=== PATIENT | female | born 1955 | race Caucasian/White ===

== ENCOUNTER → 2023-02-04 13:26 | Outpatient (CLI) | payer MEDICARE, OTHER, SELFPAY ==
--- NOTE | 2023-02-04 13:29 | DI.ECHO.S_ITS ---
[facility] +---------+ : : [address] : : : : [id number] : : : : Phone: [phone]---------+ Echocardiogram Report + + :Name: ALEJANDRA CHAUHAN Study Date: 02/04/2023 Height: 68 in : :[facility] ReadingLocation: Weight: 160 lb : : Gender: Female BSA: 1.9 m2 : :: 1955 Age: 67 yrs BP: 133/84 mmHg: :Reason For Study: MURMUR, OTHER FORMS OF DYSPNEA HR: 60 : :Ordering Physician: FAITH, : :OBI Performed By: MIREYA BUTLER : :Referring: OBI CUEVAS : + + Interpretation Summary 1) Normal left ventricular thickness, size, wall motion, and systolic function (EF 60-65%). 2) Normal right ventricular size and function. 3) There is mild aortic regurgitation. 4) No prior Echo available for comparison. Procedure: A two-dimensional transthoracic echocardiogram with color flow and Doppler was performed. The study quality was technically adequate. There is no prior echocardiogram noted for this patient. The patient was in normal sinus rhythm during the exam. Left Ventricle: The left ventricle is normal in size and wall thickness. Left ventricular systolic function is normal. The ejection fraction is estimated to be 60-65%. Left ventricular wall motion is normal. Diastolic parameters suggest probable normal left ventricular diastolic function and normal filling pressures. Right Ventricle: The right ventricle is normal size. The right ventricular systolic function is normal. Atria: Both atria are normal in size. There is no Doppler evidence for an interatrial shunt. Mitral Valve: The mitral valve is normal in structure and function. There is trace mitral regurgitation. Aortic Valve: The aortic valve is trileaflet. The aortic valve opens well. There is no aortic valve stenosis. There is mild aortic regurgitation. Tricuspid Valve: The tricuspid valve is normal. There is mild tricuspid regurgitation. The right ventricular systolic pressure is estimated to be at least 29 mmHg based on an estimated right atrial pressure of 3 mm Hg. Pulmonic Valve: The pulmonic valve leaflets are thin and pliable; valve motion is normal. There is trace pulmonic regurgitation. Great Vessels: The aortic root is normal size. The ascending aorta is normal in size. The IVC is dilated (diameter is greater than 2.1 cm) yet it collapses greater than 50% with a sniff. This suggests a right atrial pressure of 8 mm Hg. Pericardium/ Pleura There is no pericardial effusion. There is no pleural effusion. MMode/2D Measurements & Calculations LVIDd: 4.6 cm LVOT diam: 2.1 cm LVIDs: 2.5 cm Ao root diam: 3.6 cm FS: 45.7 % asc Aorta Diam: 3.3 cm IVSd: 0.80 cm LVPWd: 0.80 cm LV oseguera. diameter/BSA (cm/m^2): 2.5 LV sys. diameter/BSA (cm/m^2): 1.3 LA A2 area: 19.7 cm2 RA long axis: 3.9 cm LA A4 area: 14.4 cm2 LA length (vol): 5.7 cm LA vol: 42.6 ml LA vol index: 22.9 ml/m2 LVLs ap4: 6.1 cm LVLd ap2: 8.8 cm LVLs ap2: 6.3 cm TAPSE_phl: 3.0 cm Doppler Measurements & Calculations Ao V2 max: 127.0 cm/sec LVOT Max Ravi: 115.0 cm/sec Ao V2 mean: 82.2 cm/sec LV V1 max P.3 mmHg Ao max P.5 mmHg LV V1 VTI: 25.1 cm Ao mean P.0 mmHg JADE(I,D): 3.4 cm2 Ao V2 VTI: 25.3 cm JADE(V,D): 3.1 cm2 sev ratio: 0.99 JADE indexed to BSA (cm^2/m^2): 1.8 MV E max ravi: 76.3 cm/sec TR max ravi: 257.0 cm/sec MV A max ravi: 86.5 cm/sec TR max P.4 mmHg MV E/A: 0.88 PA V2 max: 103.0 cm/sec Med Peak E' Ravi: 8.5 cm/sec PA V2 mean: 76.1 cm/sec E/E' med: 9.0 PA mean P.0 mmHg Lat Peak E' Ravi: 13.8 cm/sec PA pr(Accel): 33.1 mmHg E/E' lat: 5.5 E/e' average: 7.2 MV dec time: 0.23 sec SV(LVOT): 86.9 ml AV VR_phl: 0.91 JADE(VTI)/BSA_phl: 1.8 MV P1/2t-pr_phl: 66.0 msec Reading Physician:03:37 PM
--- NOTE | 2023-02-06 11:41 | DI.NM.S_ITS ---
DATE OF SERVICE:02/04/2023 PROCEDURE: Exercise treadmill stress test without imaging. ORDERING PROVIDER: SUPA Lord. INDICATIONS: The patient is a 67-year-old hypertensive female with exertional dyspnea. FINDINGS: 1. The patient was able to exercise for 10 minutes and 16 seconds on a standard Jae protocol suggesting exceptional exercise capacity with an DANNY of -62%, achieving 12.8 METS. 2. She had a normal heart rate and blood pressure response to exercise, achieving a maximum heart rate of 141 BPM (91% of her predicted maximum). 3. She had no chest pain or other anginal symptoms. 4. Her resting ECG showed sinus rhythm with mild resting ST and T-wave abnormalities that became slightly accentuated with stress but without significant deviation and resolved early in recovery, and thus is nonspecific for ischemia. There were occasional isolated PVCs at high workload and in recovery, but no complex ventricular ectopy. IMPRESSION: 1. Probable normal exercise treadmill stress test for ischemia. There was slight accentuation of baseline ST-segment abnormalities but this resolved early in recovery. This is a low risk study. 2. Exceptional exercise capacity without angina. 3. She developed occasional isolated PVCs at high workload and in recovery but had no complex ventricular ectopy. Mitzy Rico - CARIE/charity/cornelio doc#: [id number]/job#: [id number] dd: 02/04/2023 16:56:00 dt: 02/04/2023 22:10:00 DICTATING /COPIES TO: Mau Arzate MD; Lizet Shell NP COPIES MNE: RIGOBERTO;
== END ==
PROVIDERS: PCP Registered Nurse; Referring Provider Registered Nurse; Visit Provider Registered Nurse
DX: R06.09 Other forms of dyspnea (principal); R01.1 Cardiac murmur, unspecified; I08.2 Rheumatic disorders of both aortic and tricuspid valves
CPT/HCPCS: 93017; 93306

== ENCOUNTER → 2023-08-29 | Outpatient (CLI) | payer MEDICARE, OTHER, SELFPAY ==
--- NOTE | 2023-08-29 | DI.MG.S_ITS ---
BILATERAL DIGITAL SCREENING MAMMOGRAM 3D/2D WITH CAD: 08/29/2023 CLINICAL: Routine screening. No prior exams were available for comparison. There are scattered areas of fibroglandular density in both breasts (category b / 25%-50% glandular tissue). Current study was also evaluated with a Computer Aided Detection (CAD) system. No significant masses, calcifications, or other findings are seen in either breast. IMPRESSION: NEGATIVE There is no mammographic evidence of malignancy. A 1 year screening mammogram is recommended. Based on the Tyrer Cuzick model (a risk assessment model) the patient's lifetime risk is 6.3% and her 10 year risk is 3.0%. According to the ACR, ACS, and NCCN guidelines, an annual breast MRI exam along with mammogram is recommended if the patient's lifetime risk is 20% or greater. This exam was interpreted at Station ID: [id number]. NOTE: For mammograms, a report in lay terms will be sent to the patient. Approximately 15% of breast malignancies will not be visualized mammographically. In the management of a palpable breast mass, a negative mammogram must not discourage biopsy of a clinically suspicious lesion. Electronically Signed By: Ashish azar/alta:08/29/2023 12:03:35 letter sent: Normal Exam ACR BI-RADS Category 1: Negative [id number]
--- NOTE | 2023-08-29 | DI.RAD.S_ITS ---
Bone Density Report Name: ALEJANDRA CHAUHAN Age: 67 Sex: Female Ethnicity: White Date of : 1955 Indication: postmenopausal; screening for osteoporosis; prior fracture; Referring Provider: OBI CUEVAS Study: Bone densitometry was performed. Exam Date: August 29, 2023 Accession number: [id number] Bone Density: Region BMD T-score Z-score Classification AP Spine(L1, L4) 0.797 -2.2 -0.4 Osteopenia Femoral Neck (Left) 0.652 -1.8 -0.2 Osteopenia Total Hip (Left) 0.753 -1.5 -0.3 Osteopenia Femoral Neck (Right) 0.684 -1.5 0.1 Osteopenia Total Hip (Right) 0.783 -1.3 0.0 Osteopenia Total Hip Mean 0.768 -1.4 -0.2 Osteopenia World Health Organization criteria for BMD impression classify patients as: Normal (T-score at or above -1.0), Osteopenia (T-score between -1.0 and -2.5), or Osteoporosis (T-score at or below -2.5). 10-year Fracture Risk: FRAX not reported because: Prior hip or vertebral fracture Impression: The patient has low bone mass, based on the Total Spine T-score. The patient has risk factors, including: previous fracture. Discussion: INCREASED RISK OF FRACTURE DUE TO HISTORY OF FRACTURE. The patient's previous fracture puts the patient at high risk of a future fracture. In untreated patients, the risk of osteoporotic fracture increases approximately two-fold for each 1.0 SD decrease in T-score. Low bone density is not the only risk factor for fracture; also consider factors such as patient's age, frailty or poor health, risk of falling, risk of injury, previous osteoporotic fracture, family history of osteoporosis, cigarette smoking, low body weight, etc. Not everyone with a low trauma fracture has osteoporosis; osteomalacia and other metabolic bone disorders should also be considered. Patients who have osteoporosis should be evaluated for specific diseases and conditions (secondary causes) that may cause or contribute to bone loss and fracture risk. National Osteoporosis Foundation (NOF) recommends pharmacologic intervention for patients with a prior hip or vertebral fracture regardless of BMD T-score. The patient should follow a healthful lifestyle (good nutrition with adequate calcium and vitamin D, and appropriate weight-bearing exercise). Follow-Up: Consider a repeat BMD and Vertebral Fracture Assessment (VFA) exam in 2 years or sooner if medically necessary, to reassess this patient's status. Reported by: VENKATA MARIE M.D. on 08/29/2023 11:25:00 AM.
== END ==
LOC: MAMMO 11:00
PROVIDERS: PCP Registered Nurse; Referring Provider Registered Nurse; Visit Provider Registered Nurse
DX: Z12.31 Encounter for screening mammogram for malignant neoplasm of breast (principal); Z78.0 Asymptomatic menopausal state; M85.88 Other specified disorders of bone density and structure, other site; Z13.820 Encounter for screening for osteoporosis; Z87.311 Personal history of (healed) other pathological fracture
CPT/HCPCS: 77063; 77067; 77080

== ENCOUNTER → 2024-03-03 11:58 | Outpatient (CLI) | payer MEDICARE, OTHER, SELFPAY ==
--- NOTE | 2024-03-03 12:03 | DI.RAD.S_ITS ---
PROCEDURE: XR HIP W PEL IF DONE RT 2V INDICATIONS: FALL, BACK PAIN TECHNIQUE: AP pelvis with lateral view(s) of the right hip(s). COMPARISON: [facility], CR, XR LUMBAR SPINE 2-3V, 03/03/2024, 12:13. FINDINGS: Bones: No fractures or dislocations. Pelvic ring appears intact. No suspicious bony lesions. Mild degenerative joint disease in hips and sacroiliac joints bilaterally. 2 metallic densities projecting to the right mid abdomen and upper pelvis. Soft tissues: The visualized bowel gas pattern is normal. No suspicious soft tissue calcifications. IMPRESSION: 1. No acute bony abnormality. 2. Mild degenerative joint disease. Dictated by: Dionte Roth M.D. on 03/04/2024 at 8:15 Approved by: Dionte Roth M.D. on 03/04/2024 at 8:16
--- NOTE | 2024-03-03 12:04 | DI.RAD.S_ITS ---
PROCEDURE: XR LUMBAR SPINE 2-3V INDICATIONS: FALL, BACK PAIN TECHNIQUE: 3 views of the lumbar spine were acquired. COMPARISON: X-ray thoracic spine, 03/03/2024. FINDINGS: Bones: 5 [id number] vertebrae are present. There is mild levocurvature. Trace retrolisthesis of L3 on L4. Severe compression fracture of T12 and moderate vertebral body compression fracture at L3 of indeterminate chronicity. No suspicious bony lesions. Multilevel degenerative disease, moderate at L3-L4, mild at other levels. Moderate facet arthropathy at L2-L3, L3-L4, L4-L5 and L5-S1. Soft tissues: Overlying bowel gas pattern is normal. No suspicious soft tissue calcifications. IMPRESSION: 1. Severe compression fracture of T12 and compression fracture of L3 of indeterminate chronicity. Comparison to prior examinations, if available, would be helpful. If clinically indicated, consider MRI or CT. 2. Moderate spondylitic changes. 3. Mild levocurvature. Dictated by: Dionte Roth M.D. on 03/04/2024 at 8:16 Approved by: Dionte Roth M.D. on 03/04/2024 at 8:18
--- NOTE | 2024-03-03 12:04 | DI.RAD.S_ITS ---
PROCEDURE: XR THORACIC SPINE 3V INDICATIONS: FALL, BACK PAIN TECHNIQUE: 3 views of the thoracic spine were acquired. COMPARISON: [facility], CR, XR LUMBAR SPINE 2-3V, 03/03/2024, 12:13. FINDINGS: Bones: Multiple compression fractures, severe at T12, moderate at T 6 and mild at T 5. Osteopenia. No suspicious bony lesions. Mild degenerative disc disease throughout the thoracic spine. 12 pairs of ribs are noted, and appear intact where visualized. Soft tissues: No paravertebral stripe thickening. IMPRESSION: 1. Severe compression fracture at T12, moderate compression fracture at T6 and mild compression fracture at T 5. Chronicity uncertain. There may be acute fracture superimposed on chronic fracture. If clinically indicated, consider MRI with CT for further evaluation. Comparison to prior examinations, if available, would be helpful. 2. Mild spondylitis. 3. Osteopenia. Dictated by: Dionte Roth M.D. on 03/04/2024 at 8:20 Approved by: Dionte Roth M.D. on 03/04/2024 at 8:23
== END ==
PROVIDERS: PCP Registered Nurse; Referring Provider Registered Nurse; Visit Provider Registered Nurse
DX: S22.059A Unspecified fracture of T5-T6 vertebra, initial encounter for closed fracture (principal); S22.089A Unspecified fracture of T11-T12 vertebra, initial encounter for closed fracture; S32.039A Unspecified fracture of third lumbar vertebra, initial encounter for closed fracture; M46.94 Unspecified inflammatory spondylopathy, thoracic region; M85.88 Other specified disorders of bone density and structure, other site; M16.0 Bilateral primary osteoarthritis of hip; M70.61 Trochanteric bursitis, right hip; M25.551 Pain in right hip; M51.36 Other intervertebral disc degeneration, lumbar region; M47.816 Spondylosis without myelopathy or radiculopathy, lumbar region; M47.817 Spondylosis without myelopathy or radiculopathy, lumbosacral region; M54.50 Low back pain, unspecified; W18.30XA Fall on same level, unspecified, initial encounter
CPT/HCPCS: 72072; 72100; 73502

== ENCOUNTER → 2024-09-04 14:49 | Outpatient (CLI) | payer MEDICARE, OTHER, SELFPAY ==
--- NOTE | 2024-09-04 | DI.MG.S_ITS ---
BILATERAL DIGITAL SCREENING MAMMOGRAM 3D/2D WITH CAD: 09/04/2024 Comparison is made to exam dated: 08/29/2023 mammogram - [facility]. The breasts are almost entirely fatty (category a/<25% glandular tissue). Current study was also evaluated with a Computer Aided Detection (CAD) system. No significant masses, calcifications, or other findings are seen in either breast. There has been no significant interval change. IMPRESSION: NEGATIVE There is no mammographic evidence of malignancy. A 1 year screening mammogram is recommended. Based on the Tyrer Cuzick model (a risk assessment model) the patient's lifetime risk is 4.0% and her 10 year risk is 2.0%. According to the ACR, ACS, and NCCN guidelines, an annual breast MRI exam along with mammogram is recommended if the patient's lifetime risk is 20% or greater. This exam was interpreted at Station ID: [id number]. NOTE: For mammograms, a report in lay terms will be sent to the patient. Approximately 15% of breast malignancies will not be visualized mammographically. In the management of a palpable breast mass, a negative mammogram must not discourage biopsy of a clinically suspicious lesion. Electronically Signed By: Duc anderson/alta:09/04/2024 16:30:04 letter sent: Normal Exam ACR BI-RADS Category 1: Negative
== END ==
PROVIDERS: PCP Registered Nurse; Referring Provider Registered Nurse; Visit Provider Registered Nurse
DX: Z12.31 Encounter for screening mammogram for malignant neoplasm of breast (principal); R92.313 Mammographic fatty tissue density, bilateral breasts
CPT/HCPCS: 77063; 77067

== ENCOUNTER 2024-09-25 16:34 | Emergency (ER) | payer MEDICARE, OTHER, SELFPAY ==
[2024-09-25 16:40] VITALS: BP 138/86; PULSE 72; RESP 16; TEMP 36.1; O2SAT 98; BMI 28.7
[2024-09-25 17:25] LABS: Add Manual Diff / Slide Review NO; Basophils Absolute Auto 100 /uL (0-100); Basophils Percent Auto 1.4 % (0-2); Eosinophils Absolute Auto 200 /uL (0-450); Hematocrit 32.3 % (36-46); Hemoglobin 10.6 g/dL (12.0-16.0); Lymphocytes Absolute Auto 1400 /uL (1100-4500); Lymphocytes Percent Auto 34.8 % (25-40); Mean Corpuscular HGB Conc 32.8 % (30-36); Mean Corpuscular Hemoglobin 25.9 PG (26-34); Mean Corpuscular Volume 79.1 fL (80-100); Monocytes Absolute Auto 400 /uL (0-900); Monocytes Percent Auto 8.7 % (3-14); Neutrophils Absolute Auto 2100 /uL (1500-7000); Neutrophils Percent Auto 51.1 % (50-75); Platelet Count 379 X10^3/uL (150-400); Red Blood Cell Count 4.08 X10^6/uL (4.0-5.2); Red Cell Distribution Width 16.4 % (11.6-14.8); White Blood Cell Count 4.1 X10^3/uL (4.5-11.0)
[2024-09-25 17:29] LABS: Alanine Aminotransferase 15 IU/L (<35); Albumin 4.6 g/dL (3.5-5.0); Alkaline Phosphatase 85 U/L (38-126); Aspartate Aminotransferase 25 IU/L (14-36); BUN Creatinine Ratio 15.8 (6-22); Bilirubin Total 0.7 mg/dL (0.2-1.3); Blood Urea Nitrogen 12 mg/dL (7-17); Calcium 9.3 mg/dL (8.4-10.2); Carbon Dioxide 24 mmol/L (22-32); Chloride 106 mmol/L (98-107); Estimated Glomerular Filt Rate > 60 mL/min (>60); Globulin 3.1 g/dL (1.7-4.1); Glucose 88 mg/dL (80-110); HEMOLYSIS < 15 (0-50); Potassium 3.8 mmol/L (3.4-5.1); Sodium 136 mmol/L (137-145); Total Protein 7.7 g/dL (6.3-8.2)
[2024-09-25 17:30] LABS: Albumin Globulin Ratio 1.5 (1.0-2.8); Lipase 78 U/L (23-300)
[2024-09-25 18:07] LABS: Bacteria Urine None Seen; Culture Indicated Urine Cult Not Indicated; RBC Urine None Seen (0-5/HPF); Squamous Epithelial Cell Urine None Seen (0-5/HPF); Urine Volume 10mL (spun); WBC Urine 0-1/HPF (0-5/HPF)
--- NOTE | 2024-09-25 18:13 | DI.CT.S_ITS ---
PROCEDURE: CT ABDOMEN PELVIS W CON INDICATIONS: Abdominal distention and pain TECHNIQUE: After the administration of intravenous contrast, axial sections acquired from the lung bases to the pubic symphysis. Coronal and sagittal reformats were performed. For radiation dose reduction, the following was used: automated exposure control, adjustment of mA and/or kV according to patient size. COMPARISON: [facility], CR, XR LUMBAR SPINE 2-3V, 03/03/2024, 12:13. FINDINGS: Image quality: Diagnostic. Lower Chest: Large hiatal hernia. Abnormal orientation of the stomach within the posterior mediastinum. ABDOMEN: Liver: No solid mass. Gallbladder: Gallbladder sludge versus small stones. No wall thickening or pericholecystic edema to suggest acute cholecystitis. Biliary ducts: No biliary dilation. Pancreas: No ductal dilation. Pancreatic divisum. Spleen: Size is within normal limits. Adrenal Glands: No adrenal nodules. Kidneys and Ureters: No hydronephrosis. No solid mass. No complex renal cystic lesion which requires follow up. Bilateral renal sinus cysts. Stomach and Bowel: Normal colonic caliber, without significant wall thickening. Normal appendix. Colonic diverticulosis without evidence of diverticulitis. Peritoneum: No abnormal intraperitoneal fluid. No free air. Ventral Wall: No significant ventral hernia. Abdominal Nodes: No retroperitoneal or mesenteric adenopathy by size criteria. Vessels: Aorta and inferior vena cava are normal in size. PELVIS: Pelvic Organs: Unremarkable. Bladder: No bladder wall thickening, accounting for underdistention. Pelvic Nodes: No enlarged lymph nodes. Miscellaneous: No inguinal hernias are seen. Bones: Osteoporosis. Compression deformities of various severity at every visualized level, progressed from 05/01/2024. 3 mm retropulsion at T12. IMPRESSION: There is a large hiatal hernia, containing near the entire stomach. There is abnormal rotation of the stomach within the hernia, which may indicate volvulus in the correct clinical setting. Progressed compression deformities of the thoracolumbar spine at every level. Other chronic findings as above. Dictated by: Franklin Carlson M.D. on 09/25/2024 at 18:53 Approved by: Franklin Carlson M.D. on 09/25/2024 at 18:59
--- NOTE | 2024-09-25 19:21 | EKG_ITS ---
[facility] [address] [place] [address] Test Date: 2024-09-25 Pat Name: Mitzy Rico Department: [facility] Room: Gender: Female [employer]: SUDARSHAN : 1955 Requested By: Order Number: [id number] Reading MD: Dann Rodrigez Measurements Intervals [place] Rate: 65 P: 34 AR: 150 QRS: 13 QRSD: 68 T: 19 QT: 412 QTc: 428 Interpretive Statements Normal sinus rhythm Nonspecific ST and T wave abnormality Electronically Signed On 10-01-2024 9:06:27 PST by Dann Rodrigez
[2024-09-25 19:39] VITALS: BP 145/83; PULSE 60; O2SAT 98
[2024-09-25 19:40] VITALS: BP 145/83; PULSE 63; RESP 16; O2SAT 97
--- NOTE | 2024-09-25 19:58 | ED_ITS ---
HPI - General Adult General Chief complaint: Abdominal Pain Stated complaint: abd pain Time Seen by Provider: 09/25/24 18:13 Source: patient Mode of arrival: Ambulatory History of Present Illness HPI narrative: Patient is a 69-year-old female who is here for evaluation of early satiety, abdominal discomfort, nausea. No changes in bowel habits. No urinary symptoms. She stated that she has had a GI bleed in the past requiring colonoscopy and endoscopy. She stated that this is most likely related to the use of anti- inflammatories. She was not in any of those symptoms recently. She was not on any anticoagulation. There is a referral for her to see Gastroenterology but that is not for another several weeks. She was getting iron infusions for anemia. She stated that she was getting her iron infusion today and she talked with the nurse about her symptoms who advised that she come to the emergency department for further evaluation. Her symptoms that she presents with today happen present for the past several weeks/months. He was nothing new recently. Related Data Home Medications Medication Instructions Recorded Confirmed calcium 500 mg tablet 1,500 mg DAILY 02/06/23 04/10/23 cholecalciferol (vitamin D3) 25 25 mcg PO DAILY 02/06/23 04/10/23 mcg (1,000 unit) chewable tablet (Vitamin D3) ferrous sulfate 325 mg (65 mg 325 mg PO DAILY 02/06/23 04/10/23 iron) tablet (iron) levothyroxine 75 mcg capsule 75 mcg PO DAILY 02/06/23 04/10/23 losartan 50 mg tablet 50 mg PO DAILY 02/06/23 04/10/23 polyethylene glycol 3350 17 gram 17 g PO DAILY 02/06/23 04/10/23 oral powder packet (Miralax) ascorbic acid (vitamin C) 500 mg 500 mg PO DAILY 04/10/23 04/10/23 tablet (Vitamin C) Allergies Allergy/AdvReac Type Severity Reaction Status Date / Time Sulfa (Sulfonamide Allergy Severe Anaphylaxis Verified 09/25/24 16:47 Antibiotics) Penicillins Allergy Unknown Verified 09/25/24 16:47 cefaclor [From Ceclor] AdvReac Intermediate Rash Verified 09/25/24 16:47 Review of Systems Review of Systems ROS Unobtainable: All systems reviewed & are unremarkable except as noted in HPI and below Patient History Social History (Reviewed 09/26/24 @ 01:14 by JANIE Bolton Smoking Status: Never smoker Smoking Status: Never smoker Alcohol type: wine Exam Initial Vital Signs Initial Vital Signs: Vital Signs Temperature 96.9 F L 09/25/24 16:40 Pulse Rate 72 09/25/24 16:40 Respiratory Rate 16 09/25/24 16:40 Blood Pressure 138/86 09/25/24 16:40 Pulse Oximetry 98 09/25/24 16:40 Oxygen Delivery Method Room Air 09/25/24 16:40 Const General: cooperative and comfortable HENMT Head: normal to inspection and normocephalic Resp Effort & Inspection: normal respiratory effort Auscultation: clear to auscultation bilaterally Cardio Rate: regular rate Rhythm: regular rhythm GI Inspection: normal to inspection and non-distended Palpation: soft Extrem General: normal to inspection Course Orders Ordered: ED Orders 09/25/24 16:47 EKG-12 Lead Stat 09/25/24 17:04 Complete Blood Count AUTO DIFF Stat Comprehensive Metabolic Panel Stat Lipase Stat 09/25/24 17:17 Urine Microscopic Stat 09/25/24 18:13 CT abdomen pelvis w con Stat Discontinued Medications Ondansetron HCl (Ondansetron 4 Mg/2 Ml Inj) 4 mg IV NOW PRN PRN Reason: Nausea And Vomiting Ondansetron HCl (Ondansetron 4 Mg Odt) 4 mg PO NOW PRN PRN Reason: Nausea And Vomiting Vital Signs Vital signs: Vital Signs - 8 hr 09/25/24 19:39 09/25/24 19:39 09/25/24 19:40 Pulse Rate 60 63 Respiratory Rate 16 Blood Pressure 145/83 H 145/83 H Pulse Oximetry 98 97 Oxygen Delivery Method Room Air 09/25/24 20:00 09/25/24 20:00 09/25/24 20:30 Pulse Rate 61 61 Respiratory Rate Blood Pressure 134/86 Pulse Oximetry 96 97 Oxygen Delivery Method Room Air 09/25/24 20:30 Pulse Rate Respiratory Rate Blood Pressure 131/80 Pulse Oximetry Oxygen Delivery Method Medical Decision Making Lab Data Lab results reviewed: Yes I reviewed the patient's lab results. 09/25/24 17:04 09/25/24 17:04 Labs: Lab Results 09/25/24 09/25/24 Range/Units 17:04 17:17 WBC 4.1 L (4.5-11.0) X10^3/uL RBC 4.08 (4.0-5.2) X10^6/uL Hgb 10.6 L (12.0-16.0) g/dL Hct 32.3 L (36-46) % MCV 79.1 L (80-100) fL MCH 25.9 L (26-34) PG MCHC 32.8 (30-36) % RDW 16.4 H (11.6-14.8) % Plt Count 379 (150-400) X10^3/uL Neut % (Auto) 51.1 (50-75) % Lymph % (Auto) 34.8 (25-40) % [place] % (Auto) 8.7 (3-14) % Eos % (Auto) 4.0 (2-4) % Baso % (Auto) 1.4 (0-2) % Neut # (Auto) 2100 (7605-5919) /uL Lymph # (Auto) 1400 (7870-5431) /uL [place] # (Auto) 400 (0-900) /uL Eos # (Auto) 200 (0-450) /uL Baso # (Auto) 100 (0-100) /uL Sodium 136 L (137-145) mmol/L Potassium 3.8 (3.4-5.1) mmol/L Chloride 106 (98-107) mmol/L Carbon Dioxide 24 (22-32) mmol/L BUN 12 (7-17) mg/dL Creatinine 0.76 (0.52-1.04) mg/dL Estimated GFR > 60 (>60) mL/min BUN/Creatinine Ratio 15.8 (6-22) Glucose 88 (80-110) mg/dL Calcium 9.3 (8.4-10.2) mg/dL Total Bilirubin 0.7 (0.2-1.3) mg/dL AST 25 (14-36) IU/L ALT 15 (<35) IU/L Alkaline Phosphatase 85 (38-126) U/L Total Protein 7.7 (6.3-8.2) g/dL Albumin 4.6 (3.5-5.0) g/dL Globulin 3.1 (1.7-4.1) g/dL Albumin/Globulin Ratio 1.5 (1.0-2.8) Lipase 78 (23-300) U/L Urine RBC None seen (0-5/HPF) Urine WBC 0-1/hpf (0-5/HPF) Ur Squamous Epith Cells None seen (0-5/HPF) Urine Bacteria None seen (None) Ur Culture Indicated? Cult not indicated Vol Urine Centrifuged 10ml (spun) Urine Dip Bedside Urine Glucose Negative Bedside Urine Bilirubin - Negative Bedside Urine Ketone - Negative Urine Specific [place] 1.005 Bedside Urine Occult Blood - Negative Bedside Urine pH 6.5 Bedside Urine Protein - Negative Bedside Urine Urobilinogen - Negative Bedside Urine Nitrite - Negative Bedside Urine Leukocytes +/- 15 Esterase Point of care testing: Urine Dip Bedside Urine Glucose Negative Bedside Urine Bilirubin - Negative Bedside Urine Ketone - Negative Urine Specific [place] 1.005 Bedside Urine Occult Blood - Negative Bedside Urine pH 6.5 Bedside Urine Protein - Negative Bedside Urine Urobilinogen - Negative Bedside Urine Nitrite - Negative Bedside Urine Leukocytes +/- [address] scan - abdomen/pelvis: Radiologist's Impression: PROCEDURE: CT ABDOMEN PELVIS W CON INDICATIONS: Abdominal distention and pain TECHNIQUE: After the administration of intravenous contrast, axial sections acquired from the lung bases to the pubic symphysis. Coronal and sagittal reformats were performed. For radiation dose reduction, the following was used: automated exposure control, adjustment of mA and/or kV according to patient size. COMPARISON: [facility], CR, XR LUMBAR SPINE 2-3V, 03/03/2024, 12:13. FINDINGS: Image quality: Diagnostic. Lower Chest: Large hiatal hernia. Abnormal orientation of the stomach within the posterior mediastinum. ABDOMEN: Liver: No solid mass. Gallbladder: Gallbladder sludge versus small stones. No wall thickening or pericholecystic edema to suggest acute cholecystitis. Biliary ducts: No biliary dilation. Pancreas: No ductal dilation. Pancreatic divisum. Spleen: Size is within normal limits. Adrenal Glands: No adrenal nodules. Kidneys and Ureters: No hydronephrosis. No solid mass. No complex renal cystic lesion which requires follow up. Bilateral renal sinus cysts. Stomach and Bowel: Normal colonic caliber, without significant wall thickening. Normal appendix. Colonic diverticulosis without evidence of diverticulitis. Peritoneum: No abnormal intraperitoneal fluid. No free air. Ventral Wall: No significant ventral hernia. Abdominal Nodes: No retroperitoneal or mesenteric adenopathy by size criteria. Vessels: Aorta and inferior vena cava are normal in size. PELVIS: Pelvic Organs: Unremarkable. Bladder: No bladder wall thickening, accounting for underdistention. Pelvic Nodes: No enlarged lymph nodes. Miscellaneous: No inguinal hernias are seen. Bones: Osteoporosis. Compression deformities of various severity at every visualized level, progressed from 05/01/2024. 3 mm retropulsion at T12. IMPRESSION: There is a large hiatal hernia, containing near the entire stomach. There is abnormal rotation of the stomach within the hernia, which may indicate volvulus in the correct clinical setting. Progressed compression deformities of the thoracolumbar spine at every level. Other chronic findings as above. ECG Data Attestation: I personally reviewed and interpreted this ECG as follows: Interpretation: Sinus rhythm Ventricular rate is 65 Normal axis Normal QRS Nonspecific ST T wave changes MDM Narrative Medical decision making narrative: On the CT scan today she does have a very large hiatal hernia. Signs of obstruction. Having this large hiatal hernia could very well be the cause of her shortness of breath on exertion and also her early satiety. I did discuss the case with Dr. Diggs on-call for General surgery who stated that there was no emergent condition. Patient can follow-up with general surgery to discuss potential repair. He recommended referral to someone who specializes in forget pathology or even bariatric surgeon given the nature of the hiatal hernia. I discussed this with the patient. Recommended she contact her primary doctor for a follow-up to discuss referrals. I advised that she keep her referral for Gastroenterology. No indication for antibiotics or further radiologic studies. Patient was given return precautions. She expressed understanding and agreement. Discharge Plan Departure Patient Disposition: Home Clinical Impression: Hiatal hernia Instructions: DI for Hiatal Hernia Activity Restrictions/Additional Instructions: Continue to take all of your medications as directed. I recommend on Saturday you contact your primary doctor's office for a follow-up and to discuss referrals for general surgery. Return to the emergency department for new symptoms. Prescriptions: No Action losartan 50 mg Tablet 50 mg PO DAILY polyethylene glycol 3350 [Miralax] 17 gram Powder In Packet 17 g PO DAILY calcium 500 mg Tablet 1,500 mg DAILY ferrous sulfate [iron] 325 mg (65 mg iron) Tablet 325 mg PO DAILY levothyroxine 75 mcg Capsule 75 mcg PO DAILY cholecalciferol (vitamin D3) [Vitamin D3] 25 mcg (1,000 unit) Tablet,Chewable 25 mcg PO DAILY ascorbic acid (vitamin C) [Vitamin C] 500 mg Tablet 500 mg PO DAILY Referrals: Lizet Shell ARNP [Primary Care Provider] - Stand Alone Forms: Patient Portal/API/Survey
[2024-09-25 20:00] VITALS: BP 134/86; PULSE 61; O2SAT 96
[2024-09-25 20:30] VITALS: BP 131/80; PULSE 61; O2SAT 97
== END 2024-09-25 20:39 | disposition home or self-care (01) ==
PROVIDERS: Emergency Medicine; Emergency Provider Emergency Medicine; PCP Registered Nurse
DX: K44.9 Diaphragmatic hernia without obstruction or gangrene (principal); R06.02 Shortness of breath; R68.81 Early satiety
CPT/HCPCS: 36415; 74177; 80053; 81003; 81015; 83690; 85025; 93005; 99283; 99284; Q9967

== ENCOUNTER → 2025-08-31 09:11 | Outpatient (CLI) | payer MEDICARE, OTHER, SELFPAY ==
--- NOTE | 2025-08-31 09:12 | DI.RAD.S_ITS ---
PROCEDURE: XR DEXA AXIAL SKELETON INDICATIONS: Osteoporosis Screening COMPARISON: None. FINDINGS: Lumbar Spine: Bone mineral density 0.811 g/cm2, T score -2.2, osteopenia. L2 excluded due to increased bone density. Left Femoral Neck: Bone mineral density 0.562 g/cm2, T score -2.6. Left Hip: Bone mineral density 0.53886 g/cm2, T score -2.1, osteoporosis. Dissimilar scan technique. Right Femoral Neck: Bone mineral density 0.562 g/cm2, T score -2.6. Right Hip: Bone mineral density 0.63 g/cm2, T score -2.1, osteoporosis. Dissimilar scan technique. Fracture Risk Calculation (when applicable): Not applicable due to osteoporosis. (T score greater or equal to -1.0 to: NORMAL) (T score from -1.1 to -2.4: OSTEOPENIA) (T score less than or equal to -2.5: OSTEOPOROSIS) IMPRESSION: Osteoporosis. Follow-up guidelines as follows: Osteoporosis: Consider a repeat DEXA and Vertebral Fracture Assessment (VFA) exam in 2 years or sooner if medically necessary, to reassess this patient's status. Osteopenia: Consider a repeat DEXA in 2-3 years to reassess this patient's status, or if there is a new clinical indication. Normal: Consider a repeat DEXA in 5 years or sooner, or if there is a new clinical indication. All treatment decisions require clinical judgment and consideration of individual patient factors, including patient preferences, comorbidities, previous drug use, risk factors not captured in the FRAX model (e.g., frailty, falls, vitamin D deficiency, increased bone turnover, interval significant decline in bone density ) and possible under- or over-estimation of fracture risk by FRAX. In addition, the NOF Guide recommends that FDA-approved medical therapies be considered in postmenopausal women and men age >= 50 years with a: * Hip or vertebral (clinical or morphometric) fracture * T-score of <=-2.5 at the spine or hip * Ten-year fracture probability by FRAX of >= 3% for hip fracture or >=20% for major osteoporotic fracture. Dictated by: Yesenia Rodrigez M.D. on 08/31/2025 at 23:40 Approved by: Yesenia Rodrigez M.D. on 08/31/2025 at 23:42
== END ==
LOC: RAD 09:12
PROVIDERS: PCP Registered Nurse; Referring Provider Registered Nurse; Visit Provider Registered Nurse
DX: M81.0 Age-related osteoporosis without current pathological fracture (principal)
CPT/HCPCS: 77080